=== PATIENT | male | born 1945 | race Caucasian/White ===

== ENCOUNTER → 2018-08-12 | Outpatient (REF) | payer MEDICARE ==
[~2018-08-12] MED LIST: FLUARIX QUADRIV1 IN1 IM; LIPITOR20 MG PO; PRILOSEC40 MG PO
== END | disposition home or self-care (01) ==
LOC: DI 10:38
PROVIDERS: ATTEND Nurse Practitioner Family
DX: F17.200 Nicotine dependence, unspecified, uncomplicated (principal); J98.11 Atelectasis

== ENCOUNTER 2019-05-19 15:58 | Inpatient (IN) | payer MEDICARE ==
[~2019-05-19] VITALS: Ht 180.3 cm; Wt 104.9 kg
[2019-05-19 17:14] LABS: HEMATOCRIT 46.5 % (39.0-50.0); HEMOGLOBIN 15.5 g/dl (14.0-18.0); IMMATURE GRANULOCYTES 0.3 % (0.0-5.0); MEAN CELL VOLUME 94.3 fL CALC (80.0-100.0); MEAN CORPUSCULAR HGB 31.4 pG CALC (26.0-32.0); MEAN CORPUSCULAR HGB CONC 33.3 g/L CALC (32.0-36.0); NEUT# 11.51 thou/uL (1.82-7.42); RED BLOOD COUNT 4.93 mill/uL (4.70-6.10); RED CELL DISTRI WIDTH 13.1 % (11.5-15.5)
[2019-05-19 17:28] LABS: ALBUMIN 4.7 g/dL (3.2-5.0); ALKALINE PHOSPHATASE 110 u/l (38-126); AMYLASE 49 u/l (30-110); ANION GAP 17 (6-22 (CALC)); BILIRUBIN, TOTAL 0.8 mg/dL (0.0-1.4); BUN 13 mg/dL (8-23); BUN/CREATININE RATIO 15 (12-20 (CALC)); CARBON DIOXIDE 26 mmol/l (22-30); CHLORIDE 101 mmol/l (95-108); CREATININE 0.8 mg/dL (0.7-1.3); GFR > 60 ML/MIN (>=60 (CALC)); GFR FOR AFR.AMER. > 60 ML/MIN (>=60 (CALC)); LIPASE 18 u/l (23-300); POTASSIUM 3.9 mmol/l (3.5-5.1); SGOT/AST 22 u/l (19-48); SODIUM 140 mmol/l (137-146); TOTAL PROTEIN 8.3 g/dL (6.3-8.2)
[2019-05-19 19:03] LABS: URINE BILIRUBIN - DIPSTICK NEGATIVE (NEGATIVE); URINE BLOOD DIPSTICK NEGATIVE (NEGATIVE); URINE COLOR YELLOW; URINE GLUCOSE - DIPSTICK NEGATIVE (NEGATIVE); URINE KETONE NEGATIVE (NEGATIVE); URINE LEUK ESTERASE NEGATIVE (NEGATIVE); URINE NITRITE - DIPSTICK NEGATIVE (Negative); URINE PH 7.5 (4.5-8.0); URINE PROTEIN - DIPSTICK TRACE mg/dL (NEG-TRACE); URINE UROBILINOGEN - DIPSTICK 0.2 E.U./dL (0.2)
[2019-05-19 20:00] VITALS: BP 173/82
[2019-05-19 23:40] VITALS: BP 166/84
[2019-05-20 04:01] VITALS: BP 152/76
[2019-05-20 07:35] VITALS: BP 152/68
[2019-05-20 11:32] VITALS: BP 138/66
[2019-05-20 15:49] VITALS: BP 140/70
[2019-05-20 18:47] VITALS: BP 124/69
[2019-05-21] VITALS (9 sets, daily range): BP systolic 105–120; BP diastolic 56–67
[2019-05-21 05:30] LABS: IMMATURE GRANULOCYTES 0.3 % (0.0-5.0); MEAN CELL VOLUME 95.4 fL CALC (80.0-100.0); MEAN CORPUSCULAR HGB 31.7 pG CALC (26.0-32.0); MEAN CORPUSCULAR HGB CONC 33.2 g/L CALC (32.0-36.0); NEUT# 9.57 thou/uL (1.82-7.42); RED BLOOD COUNT 4.17 mill/uL (4.70-6.10); RED CELL DISTRI WIDTH 13.1 % (11.5-15.5)
[2019-05-21 05:40] LABS: HEMATOCRIT 39.8 % (39.0-50.0); HEMOGLOBIN 13.2 g/dl (14.0-18.0)
[2019-05-21 05:48] LABS: ALKALINE PHOSPHATASE 84 u/l (38-126); ANION GAP 10 (6-22 (CALC)); BUN 10 mg/dL (8-23); BUN/CREATININE RATIO 11 (12-20 (CALC)); CARBON DIOXIDE 25 mmol/l (22-30); CHLORIDE 107 mmol/l (95-108); CREATININE 0.9 mg/dL (0.7-1.3); GFR > 60 ML/MIN (>=60 (CALC)); GFR FOR AFR.AMER. > 60 ML/MIN (>=60 (CALC)); POTASSIUM 4.2 mmol/l (3.5-5.1); SODIUM 138 mmol/l (137-146)
[2019-05-21 05:49] LABS: SGOT/AST 54 u/l (19-48); TOTAL PROTEIN 5.8 g/dL (6.3-8.2)
[2019-05-21 10:17] LABS: MAGNESIUM 2.2 mg/dL (1.6-2.3)
[2019-05-22 00:31] VITALS: BP 110/63
[2019-05-22 03:48] VITALS: BP 100/66
[2019-05-22 05:47] LABS: HEMATOCRIT 34.7 % (39.0-50.0); HEMOGLOBIN 11.4 g/dl (14.0-18.0); IMMATURE GRANULOCYTES 0.5 % (0.0-5.0); MEAN CELL VOLUME 97.5 fL CALC (80.0-100.0); MEAN CORPUSCULAR HGB CONC 32.9 g/L CALC (32.0-36.0); NEUT# 8.25 thou/uL (1.82-7.42); RED BLOOD COUNT 3.56 mill/uL (4.70-6.10); RED CELL DISTRI WIDTH 13.1 % (11.5-15.5)
[2019-05-22 05:48] LABS: ALBUMIN 2.7 g/dL (3.2-5.0); ALKALINE PHOSPHATASE 72 u/l (38-126); ANION GAP 9 (6-22 (CALC)); BILIRUBIN, TOTAL 0.6 mg/dL (0.0-1.4); BUN 12 mg/dL (8-23); BUN/CREATININE RATIO 13 (12-20 (CALC)); CARBON DIOXIDE 23 mmol/l (22-30); CHLORIDE 110 mmol/l (95-108); CREATININE 0.9 mg/dL (0.7-1.3); GFR > 60 ML/MIN (>=60 (CALC)); GFR FOR AFR.AMER. > 60 ML/MIN (>=60 (CALC)); MAGNESIUM 2.2 mg/dL (1.6-2.3); POTASSIUM 4.4 mmol/l (3.5-5.1); SGOT/AST 57 u/l (19-48); SODIUM 139 mmol/l (137-146); TOTAL PROTEIN 5.4 g/dL (6.3-8.2)
[2019-05-22 07:35] VITALS: BP 114/67
[2019-05-22 11:40] VITALS: BP 129/76
[2019-05-22 16:00] VITALS: BP 134/77
[2019-05-22 20:39] VITALS: BP 117/77
[2019-05-23 00:16] VITALS: BP 115/75
[2019-05-23 04:06] VITALS: BP 122/78
[2019-05-23 05:18] LABS: HEMATOCRIT 35.4 % (39.0-50.0); HEMOGLOBIN 11.6 g/dl (14.0-18.0); IMMATURE GRANULOCYTES 0.3 % (0.0-5.0); MEAN CELL VOLUME 97.3 fL CALC (80.0-100.0); MEAN CORPUSCULAR HGB 31.9 pG CALC (26.0-32.0); MEAN CORPUSCULAR HGB CONC 32.8 g/L CALC (32.0-36.0); NEUT# 3.97 thou/uL (1.82-7.42); RED BLOOD COUNT 3.64 mill/uL (4.70-6.10); RED CELL DISTRI WIDTH 13.3 % (11.5-15.5)
[2019-05-23 05:52] LABS: ANION GAP 11 (6-22 (CALC)); BUN 11 mg/dL (8-23); BUN/CREATININE RATIO 13 (12-20 (CALC)); CARBON DIOXIDE 22 mmol/l (22-30); CHLORIDE 111 mmol/l (95-108); CREATININE 0.9 mg/dL (0.7-1.3); GFR > 60 ML/MIN (>=60 (CALC)); GFR FOR AFR.AMER. > 60 ML/MIN (>=60 (CALC)); MAGNESIUM 2.2 mg/dL (1.6-2.3); POTASSIUM 4.1 mmol/l (3.5-5.1); SODIUM 140 mmol/l (137-146)
[2019-05-23 08:10] VITALS: BP 153/66
[2019-05-23] MEDS ORDERED: PERCOCET 5/325M1 TAB PO (14:05)
== END 2019-05-23 14:29 | disposition home or self-care (01) | DRG 418 ==
LOC: ED 15:58 → ED-I 19:00 → ED 19:10 → MS2 19:11
PROVIDERS: Nurse Practitioner Family; ADMIT Internal Medicine; ATTEND Internal Medicine
PROC: 0FT44ZZ Resection of Gallbladder, Percutaneous Endoscopic Approach (ICD-10-PCS; principal; 2019-05-21)
DX: K80.00 Calculus of gallbladder with acute cholecystitis without obstruction (principal); J98.11 Atelectasis; F17.200 Nicotine dependence, unspecified, uncomplicated; E78.5 Hyperlipidemia, unspecified; K76.0 Fatty (change of) liver, not elsewhere classified; F17.210 Nicotine dependence, cigarettes, uncomplicated; R33.9 Retention of urine, unspecified
CPT/HCPCS: G0378; J1100; J2710; Q9967; S0164